=== PATIENT | male | born 1955 | race Caucasian/White ===

== ENCOUNTER 2019-03-09 12:00 | Emergency (ER) | payer OTHER, MEDICAID, SELFPAY ==
[2019-03-09 12:22] VITALS: BP 142/105; PULSE 76; RESP 18; TEMP 36.7; O2SAT 99
--- NOTE | 2019-03-09 12:34 | PC.NURSE ---
Initial contact with pt in bed 10, R thumb pain, redness, fluctuating yellow pus like discoloration in R lateral distal thumb and swelling. Injured R thumb from a buffer wheel about 1 wk to 10 days ago and pain persisting. Denies fever, chills, nausea/vomiting
--- NOTE | 2019-03-09 13:39 | DI.RAD.S_ITS ---
PROCEDURE: XR HAND RT MIN 3V INDICATIONS: R. distal thumb pain/swelling TECHNIQUE: 3 views of the hand(s) acquired. COMPARISON: None. FINDINGS: Bones: No acute fractures or dislocations. Moderate degenerative changes of the right hand involving the distal interphalangeal joints of the second through fifth fingers, proximal interphalangeal joints of the third and fifth fingers, metacarpophalangeal joints of the thumb, fourth and fifth fingers, and interphalangeal joint of the right thumb. Carpal bones are normally aligned. No suspicious bony lesions. Soft tissues: No suspicious soft tissue calcifications. IMPRESSION: Right hand without acute osseous abnormalities. Moderate osteoarthritic changes of the right hand and thumb as described above. Dictated by: Reji Rodríguez M.D. on 03/09/2019 at 14:11 Approved by: Reji Rodríguez M.D. on 03/09/2019 at 14:13
--- NOTE | 2019-03-09 13:44 | ED_ITS ---
HPI - Extremity Injury (Upper) <Noa Sunshine PA-C - Last Filed: 03/09/19 20:19> General Chief Complaint: Extremity Injury, Upper Stated Complaint: Rt Thumb blistered Time Seen by Provider: 03/09/19 13:00 Source: patient Mode of arrival: ambulatory Limitations: no limitations History of Present Illness HPI narrative: This 63-year-old gentleman comes in due to pain in his right thumb along with swelling. He states that this started about 5 days ago. He was using a dremmel to bust some Mag it and he thinks that burned or rubbed on his hand. It has been read and had some swelling since then, but yesterday it blistered so he became concerned. He states that he thinks the is actually better today. He has not had fever. He states it is not painful to move the thumb, only with pressure on the area. He denies any other injury. Last tetanus shot was a year or 2 ago. He states he came in because his was concerned Related Data Home Medications Medication Instructions Recorded Confirmed ibuprofen 200 mg PO PRN #0 07/06/17 Previous Rx's Medication Instructions Recorded cephalexin [Keflex] 750 mg PO QID #120 cap 07/06/17 oxycodone 5 mg PO Q4HP PRN #40 tab 07/06/17 amoxicillin-pot clavulanate 1 tab PO Q12H #14 tab 03/09/19 Allergies Allergy/AdvReac Type Severity Reaction Status Date / Time No Known Allergies Allergy Uncoded 02/28/18 12:46 Review of Systems <Noa Sunshine PA-C - Last Filed: 03/09/19 20:19> Review of Systems ROS Unobtainable: All systems reviewed & are unremarkable except as noted in HPI and below PFSH <Noa Sunshine PA-C - Last Filed: 03/09/19 20:19> Medical History (Updated 03/09/19 @ 14:44 by Noa Sunshine PA-C) PTSD (post-traumatic stress disorder) (Chronic) Surgical History (Updated 03/09/19 @ 13:42 by Noa Sunshine PA-C) History of hand surgery (Resolved) Social History Smoking Status: Never smoker Social History Smoking Status: Never smoker Exam <Noa Sunshine PA-C - Last Filed: 03/09/19 20:19> Narrative Exam Narrative: GENERAL APPEARANCE: Patient sitting comfortably, in no distress. LUNGS: Clear to auscultation bilaterally. HEART: Rate and rhythm regular without murmur, normal S1 and S2, no S3 or S4. MUSCULOSKELETAL: All of the fingers are nodular. Tender with pressure on the medial or lateral distal thumb as well as over the vesicle, no tenderness elsewhere over the thumb. He is able to flex and extend, strength is intact against resistance DERM: The right thumb from the IP distal is edematous, moderate erythema surrounding the thumbnail and on the lateral side. On the medial side of the thumb there is a thickened, fluctuant vesicle. There does appear to be a pore centrally. Initial Vital Signs Initial Vital Signs: Vital Signs Temperature 98.0 F 03/09/19 12:22 Pulse Rate 76 03/09/19 12:22 Respiratory Rate 18 03/09/19 12:22 Blood Pressure 142/105 H 03/09/19 12:22 Pulse Oximetry 99 03/09/19 12:22 <Deja Lackey, - Last Filed: 03/10/19 07:33> Initial Vital Signs Initial Vital Signs: Vital Signs Temperature 98.0 F 03/09/19 12:22 Pulse Rate 76 03/09/19 12:22 Respiratory Rate 18 03/09/19 12:22 Blood Pressure 142/105 H 03/09/19 12:22 Pulse Oximetry 99 03/09/19 12:22 Course <Noa Sunshine PA-C - Last Filed: 03/09/19 20:19> Additional Information: Advised I and D attempt due to fluctuance around the vesicle, not clear whether this is due to abscess versus skin injury. He appears to have cellulitis as well. He declined I and D today, did agree to antibiotic and will start that right away and follow up with his PCP in 2-3 days. He agreed to return if acutely worsening or new symptoms such as fever over the weekend Orders Ordered: ED Orders 03/09/19 13:39 XR hand RT min 3V Stat Vital Signs - 8 hr 03/09/19 12:22 03/09/19 14:01 Temperature 98.0 F Pulse Rate 76 80 Respiratory Rate 18 16 Blood Pressure 142/105 H Blood Pressure [Left Arm] 155/109 H Pulse Oximetry 99 98 <Deja Lackey DO - Last Filed: 03/10/19 07:33> Orders Ordered: ED Orders 03/09/19 13:39 XR hand RT min 3V Stat Vital Signs - 8 hr 03/09/19 12:22 03/09/19 14:01 Temperature 98.0 F Pulse Rate 76 80 Respiratory Rate 18 16 Blood Pressure 142/105 H Blood Pressure [Left Arm] 155/109 H Pulse Oximetry 99 98 MDM - Extremity Injury (Upper) <Noa Sunshine PA-C - Last Filed: 03/09/19 20:19> Imaging Data hand: Radiologist's impression: 18 Noa Sunshine PA-C Find Patient Imaging Bay Baig 63 M 1955 ACTIVITY DATE EXAM STATUS AUTHOR 03/09/19 13:[address] [address] XRay Report Signed Patient: Bay Baig CMR#: [id number] : 1955cct:[id number] Age/Sex: 63 / MDate of Service: 03/09/19 Loc: ED Accession Number: [id number] Procedure: XR hand RT min 3V Ordering Provider: Noa Sunshine P.A-C PROCEDURE: XR HAND RT MIN 3V INDICATIONS: R. distal thumb pain/swelling TECHNIQUE: 3 views of the hand(s) acquired. COMPARISON: None. FINDINGS: Bones: No acute fractures or dislocations. Moderate degenerative changes of the right hand involving the distal interphalangeal joints of the second through fifth fingers, proximal interphalangeal joints of the third and fifth fingers, metacarpophalangeal joints of the thumb, fourth and fifth fingers, and interphalangeal joint of the right thumb. Carpal bones are normally aligned. No suspicious bony lesions. Soft tissues: No suspicious soft tissue calcifications. IMPRESSION: Right hand without acute osseous abnormalities. Moderate osteoarthritic changes of the right hand and thumb as described above. Dictated by: Reji Rodríguez M.D. on 03/09/2019 at 14:11 Approved by: Reji Rodríguez M.D. on 03/09/2019 at 14:13 Discharge Plan Departure Patient Disposition: Home Clinical Impression: Cellulitis of thumb, right Discharge Date/Time: 03/09/19 14:43 Interventions: ED Discharge Assessment Last Done: 03/09/19 14:52 Instructions: DI for Cellulitis -- Adult, Cellulitis Activity Restrictions/Additional Instructions: I have recommended that we make an incision in your thumb today to evaluate further for abscess (a collection of pus/infected fluid) as I am concerned about that. Since you have elected not to do that today, I have prescribed an antibiotic for you, please pick this up right away and take 2 doses today. You can try soaking the thumb in warm to hot water several times daily. As we talked about, you should follow-up with your PCP on Monday for recheck and this may need to be drained if worsening or not getting better. As we talked about, you should return right away if you have acutely worsening pain, redness, or new fever. Prescriptions: New amoxicillin-pot clavulanate 875-125 mg tablet 1 tab PO Q12H Qty: 14 RF: 0 No Action ibuprofen 200 MG capsule 200 mg PO PRNQty: 0 RF: 0 oxycodone 5 MG tablet 5 mg PO Q4HP PRNQty: 40 RF: 0 cephalexin [Keflex] 750 MG capsule 750 mg PO QID Qty: 120 RF: 0 Referrals: [address] [Other] <Deja Lackey DO - Last Filed: 03/10/19 07:33> Cosign ED Attending Cosignature Attestation: I was immediately available in the department for consultation. This documentation has been reviewed and I agree with assessment and plan. Supervised by Deja Lackey DO
[2019-03-09 14:01] VITALS: BP 155/109; PULSE 80; RESP 16; O2SAT 98
== END 2019-03-09 14:43 | disposition home or self-care (01) ==
PROVIDERS: Emergency Provider Internal Medicine
DX: L03.011 Cellulitis of right finger (principal)
CPT/HCPCS: 29130; 73130; 99282; 99283

== ENCOUNTER 2025-03-27 14:24 | Emergency (ER) | payer MEDICARE, MEDICAID, SELFPAY ==
[2025-03-27] VITALS (14 sets, daily range): BP systolic 155–200; BP diastolic 96–118; PULSE 58–88; RESP 13–50; TEMP 35.9; O2SAT 94–100; BMI 22.6
--- NOTE | 2025-03-27 14:41 | EKG_ITS ---
[place] [id number] [place] [id number] Test Date: 2025-03-27 Pat Name: Bay Baig Department: Room: Gender: Male Surgical Pathologist: DREW : 1955 Requested By: Order Number: [id number] Reading MD: Regino Tena MD Measurements Intervals [place] Rate: 82 P: 55 SC: 174 QRS: -23 QRSD: 120 T: 12 QT: 432 QTc: 504 Interpretive Statements Normal sinus rhythm Nonspecific intraventricular conduction delay Minimal voltage criteria for LVH, may be normal variant ( Vivek product ) Nonspecific ST abnormality Electronically Signed On 03-28-2025 10:05:17 PDT by Regino Tena MD
--- NOTE | 2025-03-27 14:50 | DI.CT.S_ITS ---
PROCEDURE: CT CERVICAL SPINE WO CON INDICATIONS: Trauma TECHNIQUE: Noncontrast 3 mm thick sections acquired from the skull base to the T4 level. Sagittal and coronal reformats were then constructed. For radiation dose reduction, the following was used: automated exposure control, adjustment of mA and/or kV according to patient size. COMPARISON: None. FINDINGS: Image quality: Excellent. Bones: No acute fractures or dislocations. Visualized superior ribs are intact. Multilevel disc space narrowing and degenerative endplate changes. Multilevel uncovertebral joint and facet hypertrophy. Soft tissues: Prevertebral soft tissues are normal in thickness. No paravertebral hematomas. No apical pneumothoraces. IMPRESSION: No acute displaced fracture or traumatic subluxation. Approved by: Milo Palomo M.D. on 03/27/2025 at 15:55
--- NOTE | 2025-03-27 14:50 | DI.CT.S_ITS ---
PROCEDURE: CT CHEST ABD PEL W CON INDICATIONS: TRAUMA TECHNIQUE: After the administration of intravenous contrast, 5 mm thick sections acquired from the lung apices to the symphysis. 2.5 mm thick coronal and sagittal reformats were acquired. Additional 7 mm thick coronal maximum intensity projection (MIP) reformats acquired through the lungs. Optional 10-minute delayed imaging may be performed from the kidneys to the bladder. For radiation dose reduction, the following was used: automated exposure control, adjustment of mA and/or kV according to patient size. COMPARISON: None. FINDINGS: Image quality: Diagnostic. CHEST: Lower Neck: No enlarged lymph nodes. Thyroid: No thyroid nodules which require sonographic evaluation. Axillae: No enlarged lymph nodes. Chest Wall: No subcutaneous gas. Lungs and Pleura: No pulmonary contusions or lacerations. No acute airspace opacities. Mild focal scarring or atelectasis in the lingula. No pneumothorax or hemothorax. Mediastinum: No mediastinal hematomas. Heart size is normal. No pericardial effusion. Thoracic aorta and pulmonary arteries demonstrate normal size and enhancement. No mediastinal or hilar adenopathy. Esophagus is normal in caliber. No hiatal hernia. ABDOMEN: Liver: No lacerations. Small hypoattenuating lesions in the liver are most likely cysts or hemangiomas. Gallbladder: No radiopaque gallstones or wall thickening. Biliary ducts: No biliary dilation. Pancreas: Homogenous enhancement. Spleen: Homogenous enhancement without laceration or hematoma. Adrenal Glands: Symmetric enhancement. Kidneys and Ureters: Symmetric enhancement. No hydronephrosis. No solid mass. No complex renal cystic lesion which requires follow up. Stomach and Bowel: Scattered diverticula in the colon. Normal appendix. Small bowel loops and stomach are unremarkable. Peritoneum: No abnormal intraperitoneal fluid. No free air. Ventral Wall: No hernia. Abdominal Nodes: No retroperitoneal or mesenteric adenopathy by size criteria. Vessels: Distal abdominal aortic ectasia measuring up to 2.9 cm in diameter. PELVIS: Pelvic Organs: Prostate is mildly enlarged. Bladder: Normal thickness. Pelvic Nodes: No enlarged lymph nodes. Miscellaneous: No inguinal hernias are seen. Bones: Minimally displaced segmental fracture of the posterior left 10th rib (3/41 and 46). Possible nondisplaced left posterior 11th rib fracture. Pelvic ring and hip joints appear intact. IMPRESSION: 1. Minimally displaced segmental fracture of the posterior left 10th rib and suspected nondisplaced fracture of the posterior left 11th rib. No pleural effusion or pneumothorax. 2. No other acute traumatic findings in the chest, abdomen, or pelvis. 3. Distal abdominal aortic ectasia. Recommend 5 year follow-up ultrasound. Approved by: Milo Palomo M.D. on 03/27/2025 at 16:06
--- NOTE | 2025-03-27 14:50 | DI.CT.S_ITS ---
PROCEDURE: CT HEAD/BRAIN WO CON INDICATIONS: Trauma TECHNIQUE: Noncontrast 4.5 mm thick angled axial sections acquired from the foramen magnum to the vertex, with coronal and sagittal reformats. For radiation dose reduction, the following was used: automated exposure control, adjustment of mA and/or kV according to patient size. COMPARISON: None. FINDINGS: Image quality: Diagnostic. CSF spaces: Basal cisterns are patent. No extra-axial fluid collections. The ventricles are symmetric in size and shape. Brain: No acute intracranial hemorrhage or mass effect. There is cerebral volume loss, with resultant ventricular and sulcal prominence. There are periventricular and deep white matter chronic small vessel ischemic changes. There is intracranial internal carotid artery atherosclerosis. Skull and face: Calvarium and visualized facial bones appear intact, without suspicious lesions. Sinuses: Visualized sinuses and mastoids are clear. IMPRESSION: No acute intracranial pathology. Approved by: Milo Palomo M.D. on 03/27/2025 at 15:52
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
[2025-03-27 15:01] LABS: Add Manual Diff / Slide Review NO; Basophils Absolute Auto 100 /uL (0-100); Basophils Percent Auto 0.7 % (0-2); Eosinophils Absolute Auto 100 /uL (0-450); Eosinophils Percent Auto 1.3 % (2-4); Hematocrit 49.5 % (41-53); Hemoglobin 17.3 g/dL (13.5-17.5); Lactate (Lactic Acid) 2.8 mmol/L (0.7-2.1); Lymphocytes Absolute Auto 1700 /uL (1100-4500); Lymphocytes Percent Auto 23.4 % (25-40); Mean Corpuscular Hemoglobin 31.7 PG (26-34); Mean Corpuscular Volume 90.6 fL (80-100); Monocytes Absolute Auto 500 /uL (0-900); Monocytes Percent Auto 6.3 % (3-14); Neutrophils Absolute Auto 5100 /uL (1500-7000); Neutrophils Percent Auto 68.3 % (50-75); Platelet Count 304 X10^3/uL (150-400); Red Blood Cell Count 5.47 X10^6/uL (4.5-5.9); Red Cell Distribution Width 12.9 % (11.6-14.8); White Blood Cell Count 7.4 X10^3/uL (4.5-11.0)
[2025-03-27 15:02] LABS: Alanine Aminotransferase 22 IU/L (<50); Albumin 4.7 g/dL (3.5-5.0); Albumin Globulin Ratio 1.4 (1.0-2.8); Alkaline Phosphatase 143 U/L (38-126); Aspartate Aminotransferase 29 IU/L (17-59); BUN Creatinine Ratio 15.7 (6-22); Bilirubin Total 0.8 mg/dL (0.2-1.3); Blood Urea Nitrogen 22 mg/dL (9-20); Calcium 9.9 mg/dL (8.4-10.2); Carbon Dioxide 21 mmol/L (22-32); Chloride 103 mmol/L (98-107); Creatine Kinase 227 U/L (55-170); Estimated Glomerular Filt Rate 55 mL/min (>60); Ethanol (ETOH) < 10 mg/dL; Globulin 3.4 g/dL (1.7-4.1); Glucose 204 mg/dL (70-99); HEMOLYSIS < 15 (0-50); Potassium 3.7 mmol/L (3.4-5.1); Sodium 136 mmol/L (137-145); Total Protein 8.1 g/dL (6.3-8.2)
[2025-03-27 15:12] LABS: Troponin I < 0.012 ng/mL (0.01-0.034)
[2025-03-27] MEDS: SODIUM CHLORIDE 0.9% 1,000 ML 1000 ML IV (15:15)
[2025-03-27] MEDS: diazePAM 10 MG/2 ML SYRINGE 2.5 MG IV (15:16)
--- NOTE | 2025-03-27 15:25 | PC.NURSE ---
Pt hypertensive with bp 200/110. Dr Duckworth notified.
[2025-03-27 15:54] LABS: Ur Creatinine Normal (Normal); Ur Specific Gravity Normal (Normal); Urine pH Normal (Normal)
[2025-03-27 15:55] LABS: UR Morphine/Opiate cutoff 300 Negative (Negative); Urine Amphetamines Positive (Negative); Urine Barbiturates Negative (Negative); Urine Benzodiazepines Negative (Negative); Urine Cocaine Negative (Negative); Urine MDMA Negative (Negative); Urine Methadone Negative (Negative); Urine Methamphetamines Positive (Negative); Urine Oxycodone Negative (Negative); Urine Phencyclidine Negative (Negative); Urine Tetrahydrocannabinol Negative (Negative); Urine Tricyclic Antidepressant Negative (Negative)
[2025-03-27 16:00] LABS: Bacteria Urine None Seen; Culture Indicated Urine Cult Not Indicated; RBC Urine 1-5/HPF (0-5/HPF); Squamous Epithelial Cell Urine 0-1 /HPF (0-5/HPF); Urine Volume 10mL (spun); WBC Urine None Seen (0-5/HPF)
--- NOTE | 2025-03-27 16:12 | PC.NURSE ---
Patient BIB neighbor that was concerned that he was acting different than when she last saw him yesterday. Patient in triage is tachypneic, a/o x 3, patients left arm is flaccid and he is unable to lift either legs, patient reports no pain. Patient given 2.5mg valium and bolus of NS. Patient is resting with eyes closed, respirations are even and unlabored. Patient reports no significant health history, no daily medications, no significant alcohol intake. recently admitted here at [facility] and he has been unable to see her due to family disagreement
[2025-03-27 16:24] LABS: Reflexed Lactate in 2 Hours Y
[2025-03-27] MEDS: lisinopriL 10 MG TABLET PO (16:24)
--- NOTE | 2025-03-27 17:29 | CM.SWNOTE ---
ED PILOT PLANT TECHNICIAN Assessment Note: Pt is a 69yo male, resident of [place], is seen in the ED for possible dehydration and altered mental status. Pt lives on a boat with his significant other. Patient does not have an established PCP and insurance is Medicare and Medicaid. Reviewed chart and discussed with ED staff of pt's medical status. PILOT PLANT TECHNICIAN consulted due to pt grief/tearfulness during assessments, possible MH follow up. PILOT PLANT TECHNICIAN entered room to meet with patient, introduced self and role. Pt was found to be alert and oriented, responding appropriately during assessment, noted memory is impaired. Patient explains current stressor in which his partner of 15 years is currently admitted in the ICU and was told he could not receive any updates or be in the room with his partner due to contemptuous family dynamic and no official documentation that pt is POA. Of note, pt was not able to provide proof of marriage thus pt's daughter is next of kin/MDM. Pt reports his partner and himself, didn't get with the state on purpose because of their beliefs about the government. Pt explains they had a Commitment Ceremony approximately 15 year ago in [facility]. Pt was found to be tearful and expressed frustration, feelings of defeat about the family dynamic which is now prohibiting pt from receiving updates or be in the room with his partner while she is admitted. ED PILOT PLANT TECHNICIAN provided reflective listening to assist in validating emotions; provided psychoeducation regarding stress/anticipatory grief being expressed in unusual ways. Pt stated he is hopeful there can be a discussion in which he can be updated of his partner's status or be in the room with her, pt ankita with this PILOT PLANT TECHNICIAN that he hopes to be more in control of his emotions and actions if he is granted visitation. Pt denied SI/HI at this time, declined a referral to MH or PAUL treatment. Pt states he has no cravings for meth and has been attempting to lessen use in the last few weeks. Pt agreed to [facility] follow up call the next day, PILOT PLANT TECHNICIAN calls [facility] Crisis Line and provided pt information. Follow up call scheduled for Monday, 03/28 at noon. PILOT PLANT TECHNICIAN reviews this with ED provider Dr. Duckworth who indicates agreement and understanding. Pt medically cleared for discharge per ED Provider and would benefit from MH/PAUL follow up. Transport: Pt states he typically utilizes public transit but can possibly ask his friend, Mae, who brought him to the ED to assist in getting him back to his boat. Plan: Pt to discharge home with friend to transport when available. [facility] Crisis Line to follow up with pt tomorrow via phone call. TIFFANY Wetzel
[2025-03-27 17:46] LABS: Lactate 2HR (Lactic Acid Rflx) 1.7 mmol/L (0.7-2.1)
== END 2025-03-27 17:58 | disposition home or self-care (01) ==
PROVIDERS: Emergency Provider Emergency Medicine
DX: F41.9 Anxiety disorder, unspecified (principal); S22.42XA Multiple fractures of ribs, left side, initial encounter for closed fracture; F15.10 Other stimulant abuse, uncomplicated
CPT/HCPCS: 36415; 70450; 71260; 72125; 74177; 80053; 80305; 80320; 81003; 81015; 82550; 82962; 83605; 84145; 84484; 85025; 87040; 93005; 93010; 96361; 96374; 99284; J3360; Q9967

== ENCOUNTER 2025-09-24 19:22 | Observation (INO) | payer MEDICARE, MEDICAID, SELFPAY ==
[2025-09-24] VITALS (14 sets, daily range): BP systolic 181–221; BP diastolic 98–115; PULSE 61–93; RESP 15–22; TEMP 36.4; O2SAT 96–100; BMI 23.4
--- NOTE | 2025-09-24 19:28 | ED_ITS ---
HPI - General Adult
--- NOTE | 2025-09-24 19:28 | ED.GENADULT ---
HPI - General Adult General Chief complaint: Altered Mental Status Stated complaint: N/V SOB Time Seen by Provider: 09/24/25 19:27 History of Present Illness HPI narrative: 70-year-old male seemed confused to friends with whom he is staying on a boat in [place], history of drug use, has been prescribed oxycodone in the past for chronic pain. Denied alcohol use. Has had recent nausea, vomiting, diarrhea, abdominal discomfort, no fevers or chills. Arrived by EMS. No known trauma. Multiple episodes of nonbloody emesis earlier today. Denies headache. Per nurse's notes was tearful explaining his in March, lives alone. Does not seek medical care, has not seen a medical provider in 20 years. No chronic medications. Denies thoughts of hurting himself or others. When directly asked he does admit to methamphetamine use, but states his last use was 2 or 3 weeks ago. Related Data Home Medications ?Medication ?Instructions ?Recorded ?Confirmed ibuprofen 200 mg capsule 200 mg PO PRN ##0 07/06/17 Previous Rx's ?Medication ?Instructions ?Recorded cephalexin 750 mg capsule (Keflex) 750 mg PO QID #120 caps 07/06/17 oxycodone 5 mg tablet 5 mg PO Q4HP PRN #40 tabs 07/06/17 amoxicillin 875 mg-potassium 1 tab PO Q12H skin infection #14 03/09/19 clavulanate 125 mg tablet tabs Allergies Allergy/AdvReac Type Severity Reaction Status Date / Time No Known Allergies Allergy Uncoded 09/24/25 19:45 Patient History Medical History (Updated 09/24/25 @ 22:22 by Lamin Alfredo MD) PTSD (post-traumatic stress disorder) Surgical History (Updated 03/09/19 @ 13:42 by Noa Sunshine PA-C) History of hand surgery Social History Smoking Status: Current every day smoker alcohol intake frequency: 0-2 drinks per day Exam Narrative Exam Narrative: GENERAL: Well-developed patient, in mild distress. HEAD: Atraumatic. Normocephalic. EYES: Pupils equal round and reactive. Extraocular motions intact. No scleral icterus. No injection or drainage. ENT: Nose without bleeding, purulent drainage. Throat without erythema, tonsillar hypertrophy or exudate. Airway patent. NECK: Trachea midline. Non tender CARDIOVASCULAR: Regular rate and rhythm without murmurs, gallops, or rubs. RESPIRATORY: Clear to auscultation. Breath sounds equal bilaterally. No wheezes, rales, or rhonchi. GASTROINTESTINAL: Abdomen soft, non-tender, nondistended. EXTREMITIES: No edema or joint tenderness. BACK: Nontender without deformity or crepitance. No flank tenderness. NEURO: AOx3. Motor functions grossly nonfocal. SKIN: No rash or erythema of visible areas Initial Vital Signs Initial Vital Signs: Vital Signs Pulse Rate 93 H 09/24/25 19:29 Respiratory Rate 22 09/24/25 19:29 Pulse Oximetry 98 09/24/25 19:29 Course Orders Ordered: ED Orders 09/24/25 22:08 Consult to CLERK TELEGRAPH SERVICE - Legal Billing Specialist Stat 09/25/25 07:04 Lactate (Lactic Acid) Stat Sodium Chloride (Normal Saline 0.9%) 1,000 mls @ 1,000 mls/hr IV BOLUS ONE Stop: 09/25/25 08:02 Discontinued Medications Amlodipine Besylate (Amlodipine 5 Mg Tablet) 5 mg PO NOW ONE Stop: 09/24/25 22:22 Last Admin: 09/24/25 22:25 Dose: 5 mg Documented By: NARAYAN Vital Signs Vital signs: Vital Signs - 8 hr 09/24/25 23:30 09/24/25 23:30 09/25/25 00:00 Pulse Rate 61 74 Respiratory Rate 17 17 Blood Pressure 191/103 H Pulse Oximetry 96 95 Oxygen Delivery Method Room Air Room Air 09/25/25 00:00 09/25/25 00:30 09/25/25 00:30 Pulse Rate 82 Respiratory Rate 20 Blood Pressure 172/94 H 161/87 H Pulse Oximetry 98 Oxygen Delivery Method Room Air 09/25/25 01:00 09/25/25 01:00 09/25/25 01:30 Pulse Rate 76 65 Respiratory Rate 15 20 Blood Pressure 158/97 H Pulse Oximetry 97 96 Oxygen Delivery Method Room Air Room Air 09/25/25 01:37 09/25/25 01:37 09/25/25 02:00 Pulse Rate 79 61 Respiratory Rate 23 19 Blood Pressure 176/93 H Pulse Oximetry 97 96 Oxygen Delivery Method Room Air Room Air 09/25/25 02:00 09/25/25 05:24 Pulse Rate 109 H Respiratory Rate 20 Blood Pressure 181/99 H 172/109 H Pulse Oximetry 97 Oxygen Delivery Method Room Air Medical Decision Making Lab Data Lab results reviewed: Yes I reviewed the patient's lab results. Lab results narrative: White blood cell count 5000, hemoglobin 15.9, platelets adequate. Glucose 126. BUN 21 with creatinine 1.24, serum CO2 25, potassium 4.7 normal. Sodium 135 slight decreased. Liver functions normal. Lipase 350 mild elevation. Troponin negative/unmeasurable. Urine tox screen positive for amphetamine/methamphetamine, otherwise negative. 09/24/25 19:40 09/24/25 19:40 Labs: Lab Results 09/24/25 09/24/25 09/24/25 Range/Units 19:30 19:30 19:40 WBC 5.0 (4.5-11.0) X10^3/uL RBC 4.99 (4.5-5.9) X10^6/uL Hgb 15.9 (13.5-17.5) g/dL Hct 45.6 (41-53) % MCV 91.5 (80-100) fL MCH 31.9 (26-34) PG MCHC 34.9 (30-36) % RDW 13.2 (11.6-14.8) % Plt Count 254 (150-400) X10^3/uL Neut % (Auto) 77.9 H (50-75) % Lymph % (Auto) 14.2 L (25-40) % [place] % (Auto) 6.9 (3-14) % Eos % (Auto) 0.4 L (2-4) % Baso % (Auto) 0.6 (0-2) % Neut # (Auto) 3900 (7732-3548) /uL Lymph # (Auto) 700 L (8580-4976) /uL [place] # (Auto) 300 (0-900) /uL Eos # (Auto) 0 (0-450) /uL Baso # (Auto) 0 (0-100) /uL Sodium 135 L (137-145) mmol/L Potassium 4.7 (3.4-5.1) mmol/L Chloride 102 (98-107) mmol/L Carbon Dioxide 25 (22-32) mmol/L BUN 21 H (9-20) mg/dL Creatinine 1.24 (0.66-1.25) mg/dL Estimated GFR > 60 (>60) mL/min BUN/Creatinine Ratio 16.9 (6-22) Glucose 126 H (70-99) mg/dL Lactate 1.8 (0.7-2.1) mmol/L Calcium 8.9 (8.4-10.2) mg/dL Magnesium 1.9 (1.6-2.3) mg/dL Total Bilirubin 0.7 (0.2-1.3) mg/dL AST 37 (17-59) IU/L ALT 20 (<50) IU/L Alkaline Phosphatase 120 (38-126) U/L Troponin I < 0.012 (0.01-0.034) ng/mL NT-Pro-B Natriuret Pep 665 H (<125) pg/mL Total Protein 8.1 (6.3-8.2) g/dL Albumin 4.6 (3.5-5.0) g/dL Globulin 3.5 (1.7-4.1) g/dL Albumin/Globulin Ratio 1.3 (1.0-2.8) Lipase 305 H (23-300) U/L Urine Color Yellow Urine Appearance Clear Urine pH 7.0 Normal (4.5-8.0) Ur Specific [place] 1.015 (1.000-1.035) Urine Protein 1+ H (Negative) Urine Glucose (UA) Negative (Negative) g/dL Urine Ketones Trace H (NEGATIVE) Urine Occult Blood Negative (Negative) Urine Nitrate Negative (Negative) Urine Bilirubin Negative (NEGATIVE) Urine Urobilinogen 1.0 (0.2) E.U./dL Ur Leukocyte Esterase Negative (NEGATIVE) Urine RBC None seen (0-5/HPF) Urine WBC None seen (0-5/HPF) Ur Squamous Epith Cells None seen (0-5/HPF) Urine Bacteria None seen (None) Vol Urine Centrifuged 10ml (spun) U Opiates 300ng/mL cut Negative (Negative) Ur Oxycodone Screen Negative (Negative) Urine Methadone Screen Negative (Negative) Ur Barbiturates Screen Negative (Negative) U Tricyclic Antidepress Negative (Negative) Ur Phencyclidine Scrn Negative (Negative) Ur Amphetamines Screen Positive H (Negative) U Methamphetamines Scrn Positive H (Negative) Ur MDMA Scrn (Ecstasy) Negative (Negative) U Benzodiazepines Scrn Negative (Negative) Urine Cocaine Screen Negative (Negative) U Marijuana (THC) Screen Negative (Negative) Urine Specific [place] Normal (Normal) Ur Creatinine Normal (Normal) SARS-CoV-2 (PCR) (Negative) Influenza A (RT-PCR) (NEGATIVE) Influenza B (RT-PCR) (NEGATIVE) RSV (PCR) (Negative) 09/24/25 09/24/25 09/24/25 Range/Units 19:40 20:08 22:00 WBC (4.5-11.0) X10^3/uL RBC (4.5-5.9) X10^6/uL Hgb (13.5-17.5) g/dL Hct (41-53) % MCV (80-100) fL MCH (26-34) PG MCHC (30-36) % RDW (11.6-14.8) % Plt Count (150-400) X10^3/uL Neut % (Auto) (50-75) % Lymph % (Auto) (25-40) % [place] % (Auto) (3-14) % Eos % (Auto) (2-4) % Baso % (Auto) (0-2) % Neut # (Auto) (0566-2664) /uL Lymph # (Auto) (1951-5029) /uL [place] # (Auto) (0-900) /uL Eos # (Auto) (0-450) /uL Baso # (Auto) (0-100) /uL Sodium (137-145) mmol/L Potassium (3.4-5.1) mmol/L Chloride (98-107) mmol/L Carbon Dioxide (22-32) mmol/L BUN (9-20) mg/dL Creatinine (0.66-1.25) mg/dL Estimated GFR (>60) mL/min BUN/Creatinine Ratio (6-22) Glucose (70-99) mg/dL Lactate (0.7-2.1) mmol/L Calcium (8.4-10.2) mg/dL Magnesium (1.6-2.3) mg/dL Total Bilirubin (0.2-1.3) mg/dL AST (17-59) IU/L ALT (<50) IU/L Alkaline Phosphatase (38-126) U/L Troponin I < 0.012 (0.01-0.034) ng/mL NT-Pro-B Natriuret Pep (<125) pg/mL Total Protein (6.3-8.2) g/dL Albumin (3.5-5.0) g/dL Globulin (1.7-4.1) g/dL Albumin/Globulin Ratio (1.0-2.8) Lipase 350 H (23-300) U/L Urine Color Urine Appearance Urine pH (4.5-8.0) Ur Specific [place] (1.000-1.035) Urine Protein (Negative) Urine Glucose (UA) (Negative) g/dL Urine Ketones (NEGATIVE) Urine Occult Blood (Negative) Urine Nitrate (Negative) Urine Bilirubin (NEGATIVE) Urine Urobilinogen (0.2) E.U./dL Ur Leukocyte Esterase (NEGATIVE) Urine RBC (0-5/HPF) Urine WBC (0-5/HPF) Ur Squamous Epith Cells (0-5/HPF) Urine Bacteria (None) Vol Urine Centrifuged U Opiates 300ng/mL cut (Negative) Ur Oxycodone Screen (Negative) Urine Methadone Screen (Negative) Ur Barbiturates Screen (Negative) U Tricyclic Antidepress (Negative) Ur Phencyclidine Scrn (Negative) Ur Amphetamines Screen (Negative) U Methamphetamines Scrn (Negative) Ur MDMA Scrn (Ecstasy) (Negative) U Benzodiazepines Scrn (Negative) Urine Cocaine Screen (Negative) U Marijuana (THC) Screen (Negative) Urine Specific [place] (Normal) Ur Creatinine (Normal) SARS-CoV-2 (PCR) Negative (Negative) Influenza A (RT-PCR) Flu a negative (NEGATIVE) Influenza B (RT-PCR) Flu b negative (NEGATIVE) RSV (PCR) Negative (Negative) Imaging Data CT scan - head: Radiologist's Impression: [address] [address] [address] Scan Report Signed Patient: Bay Baig MR#: [id number] : 1955 Acct:[id number] Age/Sex: 70 / M Date of Service: 09/24/25 Loc: ED Accession Number: [id number] Procedure: CT head/brain wo con Ordering Provider: Lamin Alfredo MD PROCEDURE: CT HEAD/BRAIN WO CON INDICATIONS: vomiting, confusion TECHNIQUE: Noncontrast 4.5 mm thick angled axial sections acquired from the foramen magnum to the vertex, with coronal and sagittal reformats. For radiation dose reduction, the following was used: automated exposure control, adjustment of mA and/or kV according to patient size. COMPARISON: [facility], CT, CT HEAD/BRAIN WO CON, 03/27/2025, 15:12. FINDINGS: Image quality: Diagnostic CSF spaces: Basal cisterns are patent. Lateral ventricles are symmetric. Volume: Vascular calcifications. Periventricular white matter disease is commonly seen with chronic microangiopathy. Volume loss is present. These findings are moderate Brain: Relatively denser appearance of the intracranial arteries, similar to prior, possibly artifactual from vascular calcifications. No acute hemorrhage or gross loss of zuniga-white differentiation. Craniofacial structures: No significant paranasal sinus opacity. IMPRESSION: No acute intracranial pathology. If there is high concern for parenchymal pathology, consider further evaluation with MRI. Dictated by: Ricky Grimaldo M.D. on 09/24/2025 at 20:14 Approved by: Ricky Grimaldo M.D. on 09/24/2025 at 20:16 Chest x-ray: Radiologist's Impression: [place] [address] XRay Report Signed Patient: Bay Baig MR#: [id number] : 1955 Acct:[id number] Age/Sex: 70 / M Date of Service: 09/24/25 Loc: ED Accession Number: [id number] Procedure: XR chest 1V Ordering Provider: Lamin Alfredo MD PROCEDURE: XR CHEST 1V INDICATIONS: confused TECHNIQUE: One view of the chest was acquired. COMPARISON: None. FINDINGS: Surgical changes and devices: None. Lungs and pleura: Lungs are clear. No pleural effusions or pneumothorax. Mediastinum: Mediastinal contours appear normal. Heart size is mildly enlarged. Bones and chest wall: No suspicious bony lesions. Overlying soft tissues appear unremarkable. IMPRESSION: No acute cardiopulmonary pathology. Dictated by: Isai Scott M.D. on 09/24/2025 at 19:58 Approved by: Isai Scott M.D. on 09/24/2025 at 19:58 ECG Data Attestation: I personally reviewed and interpreted this ECG as follows: Interpretation: 2031, normal sinus rhythm with a rate of 76, no obvious ST segment elevation or depression changes. Wandering baseline anterior leads noted. IA 192, QRS 106, QTC 492. MDM Narrative Medical decision making narrative: 70-year-old male with confusion and shortness of breath, had been staying on a boat, feels like he is having chills, noted by others on the boat to seemed confused. Multiple episodes nonbloody emesis. No injury or trauma. Denies alcohol use. Oxycodone noted on his medication list, unclear if he might have taken extra dose. No known thoughts hurting self or others. Afebrile, sirs screen negative. EKG shows normal sinus rhythm, anterior baseline artifact noted. No gross obvious ischemic changes. Chest x-ray no acute changes. Lab data: White blood cell count 5000, hemoglobin 15.9, platelets adequate. Glucose 126. BUN 21 with creatinine 1.24, serum CO2 25, potassium 4.7 normal. Sodium 135 slight decreased. Liver functions normal. Lipase 350 mild elevation. COVID influenza flu negative. CT head no acute changes. See radiology report. Urine drug screen positive for amphetamine, did admit to amphetamine use. 0100, Lives alone, tearful, loss of his in March 2025. Offered social media community manager consult, he would like to talk to social worker, we will consult when available later today. Elevated blood pressure, no tachycardia, methamphetamine use, confusion we will avoid benzodiazepine for now. Oral dose amlodipine. Blood pressure improved. Await social media community manager consult 0700, social worker to be consulted, signed out to oncoming ED shift physician Dr. Barclay. Discharge Plan Departure Clinical Impression: Methamphetamine abuse, Confusion, Blood pressure elevated without history of HTN Prescriptions: No Action ibuprofen 200 MG capsule 200 mg PO PRNQty: 0 oxycodone 5 MG tablet 5 mg PO Q4HP PRNQty: 40 0RF cephalexin [Keflex] 750 MG capsule 750 mg PO QID Qty: 120 0RF amoxicillin-pot clavulanate 875-125 mg tablet 1 tab PO Q12H Qty: 14 0RF
--- NOTE | 2025-09-24 19:31 | DI.RAD.S_ITS ---
PROCEDURE: XR CHEST 1V
--- NOTE | 2025-09-24 19:33 | DI.CT.S_ITS ---
PROCEDURE: CT HEAD/BRAIN WO CON
[2025-09-24 20:07] LABS: Add Manual Diff / Slide Review NO; Hematocrit 45.6 % (41-53); Hemoglobin 15.9 g/dL (13.5-17.5); Lipase 350 U/L (23-300); Lymphocytes Absolute Auto 700 /uL (1100-4500); Mean Corpuscular HGB Conc 34.9 % (30-36); Mean Corpuscular Hemoglobin 31.9 PG (26-34); Mean Corpuscular Volume 91.5 fL (80-100); Platelet Count 254 X10^3/uL (150-400)
[2025-09-24 20:08] LABS: Alanine Aminotransferase 20 IU/L (<50); Albumin 4.6 g/dL (3.5-5.0); Albumin Globulin Ratio 1.3 (1.0-2.8); Alkaline Phosphatase 120 U/L (38-126); Blood Urea Nitrogen 21 mg/dL (9-20); Calcium 8.9 mg/dL (8.4-10.2); Carbon Dioxide 25 mmol/L (22-32); Chloride 102 mmol/L (98-107); Estimated Glomerular Filt Rate > 60 mL/min (>60); Globulin 3.5 g/dL (1.7-4.1); Glucose 126 mg/dL (70-99); Lactate (Lactic Acid) 1.8 mmol/L (0.7-2.1); Lipase 305 U/L (23-300); Magnesium 1.9 mg/dL (1.6-2.3); Sodium 135 mmol/L (137-145); Total Protein 8.1 g/dL (6.3-8.2)
[2025-09-24 20:10] LABS: HEMOLYSIS 142 (0-50); Potassium 4.7 mmol/L (3.4-5.1)
[2025-09-24 20:20] LABS: NT-proBNP (BNP-Adult 18+) 665 pg/mL (<125); Troponin I < 0.012 ng/mL (0.01-0.034)
--- NOTE | 2025-09-24 20:32 | EKG_ITS ---
[facility]
[2025-09-24 20:49] LABS: Influenza A - CEPHEID Flu A NEGATIVE (NEGATIVE); Influenza B - CEPHEID Flu B NEGATIVE (NEGATIVE)
[2025-09-24 20:52] LABS: COVID-19 CEPHEID 4-PLEX PCR Negative (Negative)
[2025-09-24 21:06] LABS: UR Morphine/Opiate cutoff 300 Negative (Negative); Ur Specific Gravity Normal (Normal); Urine MDMA Negative (Negative); Urine Methamphetamines Positive (Negative); Urine Tetrahydrocannabinol Negative (Negative); Urine Tricyclic Antidepressant Negative (Negative)
[2025-09-24 21:16] LABS: Appearance Urine UA CLEAR; Bilirubin Urine UA NEGATIVE (NEGATIVE); Color Urine UA YELLOW; Glucose Urine UA NEGATIVE (Negative); Ketones Urine UA TRACE (NEGATIVE); Leukocyte Esterase Urine UA NEGATIVE (NEGATIVE); Nitrite Urine UA NEGATIVE (Negative); Occult Blood Urine UA NEGATIVE (Negative); Protein Urine UA 1+ (Negative); Specific Gravity Urine UA 1.015 (1.000-1.035); Urobilinogen Urine UA 1.0 E.U./dL (0.2); pH Urine UA 7.0 (4.5-8.0)
[2025-09-24 22:43] LABS: Troponin I < 0.012 ng/mL (0.01-0.034)
[2025-09-25] VITALS (29 sets, daily range): BP systolic 150–189; BP diastolic 85–132; PULSE 61–109; RESP 15–23; TEMP 36.4–37; O2SAT 93–99; BMI 21.8
--- NOTE | 2025-09-25 | DI.MRI.S_ITS ---
PROCEDURE: MR HEAD/BRAIN WO CON
--- NOTE | 2025-09-25 02:20 | PC.NURSE ---
Pt resting quietly with eyes closed, resps even and not labored. No distress noted at this time. Pt rouses easily to verbal stimuli and engages appropriately with RN at this time. Per Dr. Helena subramanian for vs q4h. Continued plan of care discussed. No further requests or concerns at this time. Call light within reach.
--- NOTE | 2025-09-25 04:12 | PC.NURSE ---
Pt resting quietly with eyes closed, resps even and not labored. No distress noted at this time. Call light within reach. Warm blankets provided.
--- NOTE | 2025-09-25 05:19 | PC.NURSE ---
Ambulatory to restroom without difficulty or assistance
[2025-09-25] MEDS: SODIUM CHLORIDE 0.9% 1,000 ML 1000 ML IV (07:25)
[2025-09-25 07:58] LABS: Lactate (Lactic Acid) 0.8 mmol/L (0.7-2.1)
[2025-09-25] MEDS: NICOTINE 21 MG PATCH TOP (08:59)
[2025-09-25 09:10] LABS: Ammonia (NH3) < 9 umol/L (9-30)
--- NOTE | 2025-09-25 11:57 | CM.SWNOTE ---
ED ETHYL BLENDER Assessment Note: Pt is a 70yo male, resident of [place], is seen in the ED for Methamphetamine abuse, Confusion, Blood pressure elevated without history of HTN. Pt lives on a boat in [place], unclear of where he is docked. Pt does not have a PCP established and insurance is Medicare and Medicaid. Reviewed chart and discussed with multidisciplinary team pt's medical status and initial discharge needs. Per Provider, pt cleared for discharge pending establishing PCP and other community resources. ETHYL BLENDER entered room to meet with patient, introduced self and role. Present in the room are pt's friends, Calos and Kerline. Pt states he is typically independent at baseline, cares for his new dog to the best of abilities on boat. Pt states a preference to discharge home with friends to transport, friends agree to check on patient everyday for next few days. Patient expressed some interest in reconnecting with his father who lives in [place] and possibly moving up to [place] to be together in his father's home. PCP: Pt endorses an interest in now seeing a PCP in [place]. ETHYL BLENDER called [facility] and scheduled pt an appt with DIYA Muniz on soonest appt, 01/07/2026 at 2:00pm. Provided pt with printed scheduled appointment time for reference. ETHYL BLENDER encouraged pt to call PCP office and ask to be on cancellation waitlist in case he can be seen sooner. Also encouraged pt to possibly consider PCP in [place] or [facility] for sooner appt. Grief Counseling: Pt endorses feeling lost and forgetting about caring for himself since his life partner in March 2025. ETHYL BLENDER offered grief counseling via [facility], pt agreeable. ETHYL BLENDER encouraged pt to call direct line to grief counselors at [facility] to schedule appt. MH/PAUL Counseling: Pt declined this at this time. Food resources: ETHYL BLENDER discussed how pt obtains food everyday. Pt states he gets wrapped up in his daily tasks that he forgets to eat sometimes which could have caused this presentation. Pt friends agree to check on pt and assist with obtaining groceries if needed. ETHYL BLENDER reviewed Food resource list with pt and discussed utilizing the [facility] [employer] [place]. ETHYL BLENDER also highlighted reaching out to [facility] office to confirm pt food resources. Case Management: ETHYL BLENDER discussed someone checking in for case management in the community, pt agreeable to this. ETHYL BLENDER placed referral to [facility] via [employer] online form. ETHYL BLENDER reviews this with ED provider Dr. Barclay who indicates agreement and understanding. Plan: Pt to discharge home with friends to transport, [facility], PCP in December 2025, [facility] for case management. TIFFANY Wetzel
[2025-09-25] MEDS: NALOXONE 4 MG NASAL SPRAY MISC (12:07)
[2025-09-25] MEDS: ONDANSETRON 4 MG/2 ML INJ IV ×2 (12:19→17:17)
--- NOTE | 2025-09-25 13:27 | CM.DANOTE ---
DCP Assessment Note: Pt is a 70yo male, resident of [place], is admitted for Confusion, Blood pressure elevated without history of HTN. Pt lives on his boat in [facility]. Pt's Primary Care Provider is not established, has an appointment on 12/21/2025 with DIYA Muniz at [facility] and insurance is Medicare and Medicaid. Reviewed chart and discussed with multidisciplinary team pt's medical status and initial discharge needs. Per Provider, pt still experiencing altered mental status and will be admitted for observation and further medical work up. DCP met w/patient at bedside; introduced self and role. Patient was found in bed, alert and oriented, cooperative with assessment. Pt confirmed living situation and good support in friends. Pt expressed preference in discharge home when cleared, friends to transport. *see last BILLBOARD POSTER note for referrals in community placed: [facility] Grief Counseling, PCP establishment, and Food resources* Plan: Anticipating discharge home with friends to transport when medically cleared. CM team will follow closely for coordination of discharge plans. TIFFANY Wetzel Discharge Planning/Care Management CM Discharge Assessment Start: 09/25/25 13:05 Freq: Status: Active Protocol: Document 09/25/25 13:05 MW (Rec: 09/25/25 13:07 MW [id number]) Discharge Planning Assessment Assigned Discharge HUDSON Christianson Consulting Actuary Provider (not established) DIYA Muniz at [facility] Insurance Medicaid,Medicare DPOA/Assigned Calos Downey Designee Name Contact Information Advance Directives? No History Provided By Patient,Friend,Medical Record Prior Living Other Arrangements Comment Lives on a Boat in [place] Household Members none Type of Public Transportation transporation used prior to admit Independent with ADL Yes 's Is patient alert and Yes oriented? Discharge Plan Home Review Status In Process Please Provide Date 09/25/25 Initial DC Assessment Was Performed Next Review Type Continued Stay Review
[2025-09-25] MEDS: SODIUM CHLORIDE 0.45% 1,000 ML 100 ML IV (15:40)
--- NOTE | 2025-09-25 16:50 | P.HP_ITS ---
History of Present Illness
--- NOTE | 2025-09-25 16:50 | PM.HP.1 ---
History of Present Illness History of Present Illness Date Patient Seen: 09/25/25 Chief complaint: Confusion encephalopathy Narrative: Chief complaint: Confusion disoriented setting of chronic methamphetamine use recent prescription for oxycodone History of present illness: 09/25: 70-year-old male seemed confused to friends with whom he is staying on a boat in [facility], history of drug use, has been prescribed oxycodone in the past for chronic pain. Denied alcohol use. Has had recent nausea, vomiting, diarrhea, abdominal discomfort, no fevers or chills. Arrived by EMS. No known trauma. Multiple episodes of nonbloody emesis earlier today. Denies headache. Per nurse's notes was tearful explaining his in March, lives alone. Does not seek medical care, has not seen a medical provider in 20 years. No chronic medications. Denies thoughts of hurting himself or others. When directly asked he does admit to methamphetamine use, but states his last use was 2 or 3 weeks ago Workup in the emergency department significant for a negative MRI brain for stroke normal chest x-ray normal hemogram normal comprehensive metabolic profile negative troponin BNP of 665 lipase of 350 Urine tox screen positive for amphetamines and methamphetamines urinalysis negative ammonia negative Review of systems: No fevers chills rigors No chest pain cough shortness for breath No abdominal pain nausea vomiting diarrhea No paresthesia or paresis Physical exam: Confused elderly male very pleasant no acute distress HEENT unremarkable Heart rate and rhythm regular Lungs clear Abdomen nontender Extremities no edema Patient is confused and disoriented No focal neurologic findings Assessment and plan: Encephalopathy with confusion abnormal findings limited to lipase of 350 BNP 665 suspicions are pancreatitis which may be alcohol related versus illicit drug use CT abdomen and pelvis and ultrasound right upper quadrant to rule out biliary disease Clear liquid Antiemetics Intravenous fluids Daily CBC CRP lipase DVT prophylaxis: Subcutaneous heparin Code status: Full code blue Disposition: Observation but convert to inpatient if all symptoms do not resolve in 24 hours Time based billin minutes were involved in evaluation of this patient including direct patient evaluation discussion with emergency provider review of records review of objective laboratory and imaging findings discussion with treatment team [facility] Medical History (Updated 09/24/25 @ 22:22 by Lamin Alfredo MD) PTSD (post-traumatic stress disorder) Surgical History (Updated 03/09/19 @ 13:42 by Noa Sunshine PA-C) History of hand surgery Social History household members: none Smoking Status: Current every day smoker alcohol intake: current Meds Home Medications and Allergies Home Medications ?Medication ?Instructions ?Recorded ?Confirmed ?Type ibuprofen 200 mg capsule 200 mg PO Q8H PRN fever or pain ##0 07/06/17 09/25/25 History Allergies Allergy/AdvReac Type Severity Reaction Status Date / Time No Known Allergies Allergy Uncoded 09/24/25 19:45 Exam Vital Signs (past 8 hours): - 09/25/25 09:00 09/25/25 09:00 09/25/25 09:30 Pulse Rate 94 H Respiratory Rate Blood Pressure 166/132 H 151/85 H Pulse Oximetry 09/25/25 09:30 09/25/25 10:00 09/25/25 10:00 Pulse Rate 78 85 Respiratory Rate 17 18 Blood Pressure 168/104 H Pulse Oximetry 09/25/25 10:30 09/25/25 10:30 09/25/25 11:00 Pulse Rate 85 Respiratory Rate 20 Blood Pressure 168/105 H 167/102 H Pulse Oximetry 99 09/25/25 11:00 09/25/25 11:30 09/25/25 11:30 Pulse Rate 80 92 H Respiratory Rate 19 23 Blood Pressure 161/103 H Pulse Oximetry 97 96 09/25/25 12:00 09/25/25 12:00 09/25/25 12:30 Pulse Rate 82 72 Respiratory Rate 20 17 Blood Pressure 170/101 H Pulse Oximetry 94 09/25/25 12:48 09/25/25 12:48 09/25/25 12:53 Pulse Rate 79 78 Respiratory Rate 15 Blood Pressure 150/87 H Pulse Oximetry 94 96 09/25/25 12:53 09/25/25 13:00 09/25/25 13:00 Pulse Rate 80 Respiratory Rate 23 Blood Pressure 159/93 H 154/91 H Pulse Oximetry 97 09/25/25 13:30 09/25/25 13:30 Pulse Rate 82 Respiratory Rate 22 Blood Pressure 154/86 H Pulse Oximetry 97 Oxygen Delivery Method Room Air Oxygen Flow Rate 2 Objective Labs 09/24/25 19:40 09/24/25 19:40 Labs: Laboratory Results - last 24 hr 09/24/25 09/24/25 09/24/25 19:30 19:30 19:40 WBC 5.0 RBC 4.99 Hgb 15.9 Hct 45.6 MCV 91.5 MCH 31.9 MCHC 34.9 RDW 13.2 Plt Count 254 Neut % (Auto) 77.9 H Lymph % (Auto) 14.2 L [place] % (Auto) 6.9 Eos % (Auto) 0.4 L Baso % (Auto) 0.6 Neut # (Auto) 3900 Lymph # (Auto) 700 L [place] # (Auto) 300 Eos # (Auto) 0 Baso # (Auto) 0 Sodium 135 L Potassium 4.7 Chloride 102 Carbon Dioxide 25 BUN 21 H Creatinine 1.24 Estimated GFR > 60 BUN/Creatinine Ratio 16.9 Glucose 126 H Lactate 1.8 Calcium 8.9 Magnesium 1.9 Total Bilirubin 0.7 AST 37 ALT 20 Alkaline Phosphatase 120 Ammonia Troponin I < 0.012 NT-Pro-B Natriuret Pep 665 H Total Protein 8.1 Albumin 4.6 Globulin 3.5 Albumin/Globulin Ratio 1.3 Lipase 305 H Urine Color Yellow Urine Appearance Clear Urine pH 7.0 Normal Ur Specific [place] 1.015 Urine Protein 1+ H Urine Glucose (UA) Negative Urine Ketones Trace H Urine Occult Blood Negative Urine Nitrate Negative Urine Bilirubin Negative Urine Urobilinogen 1.0 Ur Leukocyte Esterase Negative Urine RBC None seen Urine WBC None seen Ur Squamous Epith Cells None seen Urine Bacteria None seen Vol Urine Centrifuged 10ml (spun) U Opiates 300ng/mL cut Negative Ur Oxycodone Screen Negative Urine Methadone Screen Negative Ur Barbiturates Screen Negative U Tricyclic Antidepress Negative Ur Phencyclidine Scrn Negative Ur Amphetamines Screen Positive H U Methamphetamines Scrn Positive H Ur MDMA Scrn (Ecstasy) Negative U Benzodiazepines Scrn Negative Urine Cocaine Screen Negative U Marijuana (THC) Screen Negative Urine Specific [place] Normal Ur Creatinine Normal SARS-CoV-2 (PCR) Influenza A (RT-PCR) Influenza B (RT-PCR) RSV (PCR) 09/24/25 09/24/25 09/24/25 19:40 20:08 22:00 WBC RBC Hgb Hct MCV MCH MCHC RDW Plt Count Neut % (Auto) Lymph % (Auto) [place] % (Auto) Eos % (Auto) Baso % (Auto) Neut # (Auto) Lymph # (Auto) [place] # (Auto) Eos # (Auto) Baso # (Auto) Sodium Potassium Chloride Carbon Dioxide BUN Creatinine Estimated GFR BUN/Creatinine Ratio Glucose Lactate Calcium Magnesium Total Bilirubin AST ALT Alkaline Phosphatase Ammonia Troponin I < 0.012 NT-Pro-B Natriuret Pep Total Protein Albumin Globulin Albumin/Globulin Ratio Lipase 350 H Urine Color Urine Appearance Urine pH Ur Specific [place] Urine Protein Urine Glucose (UA) Urine Ketones Urine Occult Blood Urine Nitrate Urine Bilirubin Urine Urobilinogen Ur Leukocyte Esterase Urine RBC Urine WBC Ur Squamous Epith Cells Urine Bacteria Vol Urine Centrifuged U Opiates 300ng/mL cut Ur Oxycodone Screen Urine Methadone Screen Ur Barbiturates Screen U Tricyclic Antidepress Ur Phencyclidine Scrn Ur Amphetamines Screen U Methamphetamines Scrn Ur MDMA Scrn (Ecstasy) U Benzodiazepines Scrn Urine Cocaine Screen U Marijuana (THC) Screen Urine Specific [place] Ur Creatinine SARS-CoV-2 (PCR) Negative Influenza A (RT-PCR) Flu a negative Influenza B (RT-PCR) Flu b negative RSV (PCR) Negative 09/25/25 09/25/25 07:27 08:54 WBC RBC Hgb Hct MCV MCH MCHC RDW Plt Count Neut % (Auto) Lymph % (Auto) [place] % (Auto) Eos % (Auto) Baso % (Auto) Neut # (Auto) Lymph # (Auto) [place] # (Auto) Eos # (Auto) Baso # (Auto) Sodium Potassium Chloride Carbon Dioxide BUN Creatinine Estimated GFR BUN/Creatinine Ratio Glucose Lactate 0.8 Calcium Magnesium Total Bilirubin AST ALT Alkaline Phosphatase Ammonia < 9 L Troponin I NT-Pro-B Natriuret Pep Total Protein Albumin Globulin Albumin/Globulin Ratio Lipase Urine Color Urine Appearance Urine pH Ur Specific [place] Urine Protein Urine Glucose (UA) Urine Ketones Urine Occult Blood Urine Nitrate Urine Bilirubin Urine Urobilinogen Ur Leukocyte Esterase Urine RBC Urine WBC Ur Squamous Epith Cells Urine Bacteria Vol Urine Centrifuged U Opiates 300ng/mL cut Ur Oxycodone Screen Urine Methadone Screen Ur Barbiturates Screen U Tricyclic Antidepress Ur Phencyclidine Scrn Ur Amphetamines Screen U Methamphetamines Scrn Ur MDMA Scrn (Ecstasy) U Benzodiazepines Scrn Urine Cocaine Screen U Marijuana (THC) Screen Urine Specific [place] Ur Creatinine SARS-CoV-2 (PCR) Influenza A (RT-PCR) Influenza B (RT-PCR) RSV (PCR) Assessment & Plan Time-Based Coding :: [TOTAL MINUTES] spent with patient and on the chart (including review of chart, obtaining history, exam, reviewing outside data, placing orders, documenting exam and treatment plan, and counseling patient) on [DATE]. Quality VTE Deep Vein Thrombosis/Pulmonary Embolism Present on Admission: No
--- NOTE | 2025-09-25 17:13 | DI.CT.S_ITS ---
PROCEDURE: CT ABDOMEN PELVIS WO CON
--- NOTE | 2025-09-25 18:45 | PC.NURSE ---
Patient is A&OX3 but forgetful and slightly unaware. He arrives this afternoon from ED at 1400 and is placed on telemetry. Albina RN completes admission assessment. He is taken to MRI and returned to floor. He initially c/o of severe headache but when offered toradol he states it's his thoughts that are causing him to have pain in his head. MD arrived at bedside to assess patient. He attempts to eat general diet dinner and did not tolerate it well. Instantly reported abd pain and nausea. Patient is changed to clear liquid. Plan is for him to be NPO after midnight for CT of abd, and U/S of abd in a.m. then return to clear liquid diet. Continuous monitoring.
[2025-09-25] MEDS: hydrALAZINE 20 MG/ML VIAL 10 MG IV (23:19)
[2025-09-26 03:50] VITALS: BP 124/76; PULSE 81; RESP 20; TEMP 36.6; O2SAT 95
[2025-09-26] MEDS: SODIUM CHLORIDE 0.45% 1,000 ML 100 ML IV (05:19)
[2025-09-26 07:45] VITALS: BP 154/88; PULSE 77; RESP 16; TEMP 37.1; O2SAT 98
--- NOTE | 2025-09-26 07:46 | PC.WOUNDPHOT ---
01:40- Per ICU nurse, patient had runs of VTach since 17:00, the longest was [address] Valentin notified , relayed labs and VS. No new orders.
--- NOTE | 2025-09-26 10:50 | PT.IIE ---
Surgical History (Last Updated 03/09/19 @ 13:42 by Noa Sunshine PA-C) History of hand surgery Medical History (Last Updated 03/09/19 @ 13:42 by Noa Sunshine PA-C) PTSD (post-traumatic stress disorder) Physical Therapy Inpatient Evaluation/Re-Eval M1 PT IP Prior Functional Status Start: 09/26/25 13:01 Freq: NEEDED Status: Active Protocol: Document 09/26/25 10:50 AB (Rec: 09/26/25 13:13 AB [id number]) Medical Review Prior Functional Status Medical History Yes Reviewed Communication able to make needs known Mobility and Gait pt stated that he was independent with all mobilities and ambulation without AD Social History Household Members none Living Arrangements House Number of Floors ( Two Floors Floors) Number of Stairs To pt lives alone on a boat but plans to go to his father' Enter/Railing? s house upon d/c: info provided is regarding pt's father's house: pt will stay on the main level of the house has a ramp to enter Home Environment Standard Height Toilet,Walk in Shower Home Equipment Shower Seat without Backrest,Hand Held Shower,Grab Bars In Shower Additional Social pt has an UP walker History Comment M2 PT-IP Current Condition Start: 09/26/25 13:01 Freq: NEEDED Status: Active Protocol: Document 09/26/25 10:50 AB (Rec: 09/26/25 13:13 [id number]) Physical Therapy Current Condition Current Condition Evaluation Date 09/26/25 Treatment Diagnosis encephalopathy; difficulty in walking Onset Date 09/25/25 M3 PT-IP Subjective Start: 09/26/25 13:01 Freq: NEEDED Status: Active Protocol: Document 09/26/25 10:50 AB (Rec: 09/26/25 13:13 AB [id number]) Subjective Physical Therapy Visit Type Type Initial Evaluation Visit Start Time 10:50 Visit Stop Time 11:15 Number of SORORITY SUPERVISOR Visits 0 Physical Therapy Visit Comments Patient Comments agreeable to do PT M4 PT-IP Mobility and Gait Start: 09/26/25 13:01 Freq: NEEDED Status: Active Protocol: Document 09/26/25 10:50 AB (Rec: 09/26/25 13:13 [id number]) PT-Bed Mobility Assessment Supine to Sit Supine to Sit Standby Assistance Sit to Supine Sit to Supine Standby Assistance PT-Transfer Assessment Sit to and From Stand Sit to and from Standby Assistance,Use of Upper Extremities Stand Equipment Transfer Assistive None,Gait Belt,4 Wheeled Walker Device Orthotic/Prosthetic No Devices or Brace: Transfers Transfer Destination Bed,Chair Transfer Technique ambulated Transfer Ability Level of Assist Standby Assistance,1 Person Assistance,Use of Upper Extremities Comments Mobility Comments pt supine in bench. pt's father in room with pt. pt got up and ambulated to the bed without AD SBA. presents with slow pace unsteady gait. obtained PLOF and home set up. pt's father stated that pt will be staying at his house upon d/c until ready to go back to his boat. pt requiring SBA for bed mobility and ambulated in room again for ~ 20 ft SBA without AD but tends to hold on to bed/wall for support. Assessed ambulation using 4WW and completed SBA. presents with steadier gait. pt agreed to use his Up walker at home. pt went back to bed. positioned in bed. call light and table placed next to pt. left pt with his father in room. pt agreed with HHPT. informed hospitalist regarding pt's mobility and d/c plans. Gait Assessment Gait Gait Assistance Standby Assistance Required: Distance (Feet) 20 Able to Maintain Yes Weight Bearing Status During Gait Assistive Devices Assistive Device None,Gait Belt,4 Wheeled Walker Orthotic/Prosthetic No Devices or Brace: Gait Deviations General Gait Pattern Ataxic,Decreased Stride Length,Decreased Feet Clearance Factors Limiting Gait Function Factors Limiting Decreased Activity Tolerance,Decreased Strength, Gait Function Incoordination,Poor Balance,Poor Safety Awareness PT-Balance Assessment Sitting Balance and Reactions Static Sitting Good Balance Ability Dynamic Sitting Good Balance Ability Standing Balance and Reactions Static Standing Good Balance Ability Dynamic Standing Fair Balance Ability Device Used 4WW M5 PT-IP Objective Assessments Start: 09/26/25 13:01 Freq: NEEDED Status: Active Protocol: Document 09/26/25 10:50 AB (Rec: 09/26/25 13:13 AB [id number]) Orientation Orientation/Cognition Level of Alertness Alert Orientation Name,Place,Situation Language Function No Deficits Noted Ability Safety Awareness Decreased Safety Awareness Memory Description Short Term Impaired Gross Range of Motion Lower Extremity ROM Assessment Within Functional Limits Strength Lower Extremity Strength Hip 4-/5 Knee 4-/5 Muscle Tone Muscle Tone WNL Yes M6 PT-IP Treatment Start: 09/26/25 13:01 Freq: NEEDED Status: Active Protocol: Document 09/26/25 10:50 AB (Rec: 09/26/25 13:13 AB [id number]) Physical Therapy Treatment Education Education Provided Safety M7 PT-IP Assessment and Plan Start: 09/26/25 13:01 Freq: NEEDED Status: Active Protocol: Document 09/26/25 10:50 AB (Rec: 09/26/25 13:13 AB [id number]) PT Summary Assessment and Plan Potential Rehabilitation Fair Potential Status of Condition Evolving at Evaluation Summary Impairments Pain,ROM,Strength,Balance,Coordination,Sensation,Tone, Cognition,Bed Mobility,Transfers,Gait,Activity Tolerance Assessment Summary pt is a 70y/o M who is admitted for encephalopathy. pt with h/o meth abuse. pt requiring SBA with mobility but presents with decrease activity tolerance affecting mobility independence and safety. pt lives alone on a boat but plans to go to his father's house upon d/c. pt will also benefit from HHPT. Goals Bed Mobility Goal Independent Transfer Goal Independent,Four Wheeled Walker Gait Goal Independent,Four Wheel Walker Gait Distance 200 Days to Meet Goals 10 Frequency of Treatment Frequency Of Once a Day Treatment Treatment Plan Physical Therapy Bed Mobility Training,Transfer Training,Gait Training, Treatment Plan Therapeutic Exercise,Balance Retraining,Post Op Education,Discharge Planning,Hot or Cold Pack, Neuromuscular Re-ed,Coordination Retraining,Manual Therapy Precautions Other Precautions falls Recommendations To Nursing Amount of Assist 1 Person Assist Needed Discharge Recommendations PT Discharge Home with Assistance,Home Health Recommendations Transportation Needs Private Vehicle,Wheelchair/Cabulance at Discharge - PT assist 1
--- NOTE | 2025-09-26 11:47 | CM.DPC ---
DCP Discharge Home Per MD, pt to work with PT today to confirm he can ambulate on/off his sailboat and then had discussion that pt also could d/c to his father's house in [place] as well. MD aware of pt's scheduled Establish PCP appointment with [facility] but currently not until December and SAUL called [facility] back to see if they can see him within 7-10 days of hospital discharge. [facility] triage team will attempt to get pt seen within a week and will call pt directly. Previous SW provided pt and his friends with multiple resource options yesterday. Plan: Patient to d/c home today via friend POV and outpt resources provided for grief counseling and primary care followup and pt declined PAUL resources at this time. HUDSON Marquez
[2025-09-26] MEDS: IBUPROFEN 600 MG TABLET PO (12:09)
--- NOTE | 2025-09-26 15:12 | P.DS_ITS ---
History of Present Illness
--- NOTE | 2025-09-26 15:12 | PM.DS.IH.1 ---
History of Present Illness History of Present Illness Date Patient Seen: 09/26/25 Time Patient Seen: 08:20 Chief complaint: Confusion encephalopathy Narrative: 70-year-old male seemed confused to friends with whom he is staying on a boat in [facility], history of drug use, has been prescribed oxycodone in the past for chronic pain. Denied alcohol use. Has had recent nausea, vomiting, diarrhea, abdominal discomfort, no fevers or chills. Arrived by EMS. No known trauma. Multiple episodes of nonbloody emesis earlier today. Denies headache. Per nurse's notes was tearful explaining his in March, lives alone. Does not seek medical care, has not seen a medical provider in 20 years. No chronic medications. Denies thoughts of hurting himself or others. When directly asked he does admit to methamphetamine use, but states his last use was 2 or 3 weeks ago Workup in the emergency department significant for a negative MRI brain for stroke normal chest x-ray normal hemogram normal comprehensive metabolic profile negative troponin BNP of 665 lipase of 350 Urine tox screen positive for amphetamines and methamphetamines urinalysis negative ammonia negative Discharge Providers Provider Date of admission: 09/25/25 12:53 Discharge Date: 09/26/25 Consults: 09/24/25 22:08 Consult to ELECTRICAL POWER STATION TECHNICIAN - Treating And Pumping Supervisor Stat Comment: Treating And Pumping Supervisor Consult needed for:: Other reason (Comment) Comment: Patient requesting help with potentially establishing primary care provider and maybe mental health counselor. No current SI or HI. [place]. Lives on a boat. Mental health resources sheet given to patient. 09/26/25 08:34 Consult to Physical Therapy Evaluate & Treat Comment: Lives on a sail boat, wants to return to same Physician Instructions: Evaluate and Treat Discharge provider: Davidson Steen MD Summary Hospital Course Discharge Diagnosis: Encephalopathy with confusion due to acute pancreatitis due to alcohol versus illicit drug use, versus possible concussion due to fall Hospital Course: The patient was admitted and observed overnight. He was able to get up and walk without limitation the following morning. Physical therapy assessed him and determined that he had no safety issues and would be able to return home with outpatient home health therapy follow-up. Arrangements were made with social worker masters for discharge to the patient's father's home for ongoing outpatient care and follow-up. No other issues arose. Status at Discharge Cognitive/behavioral status at discharge: oriented Functional status at discharge: independent ambulation Overall status at discharge: patient is progressing back to baseline Time Spent with Patient Time spent: Less than 30 minutes Exam Vital Signs (past 8 hours): - 09/26/25 07:45 09/26/25 07:45 Temperature 98.7 F Pulse Rate 77 Respiratory Rate 16 Blood Pressure 154/88 H Pulse Oximetry 98 Oxygen Delivery Method Room Air Oxygen Flow Rate 0 Oxygen Delivery Method Room Air Oxygen Flow Rate 0 Narrative Exam Narrative: GENERAL: This is a well-nourished, well-developed patient, appears fatigued but otherwise in no apparent distress. HEAD: Atraumatic. Normocephalic. No temporal or scalp tenderness. EYES: Pupils equal round and reactive. Extraocular motions intact. No scleral icterus. No injection or drainage. ENT: Mucous membranes pink and moist. NECK: Trachea midline. No JVD, bruits or lymphadenopathy. Supple, nontender, no meningeal signs. CARDIOVASCULAR: Regular rate and rhythm without murmurs, gallops, or rubs. RESPIRATORY: Clear to auscultation. GASTROINTESTINAL: Abdomen soft, non-tender, nondistended. EXTREMITIES: No clubbing, cyanosis, or edema. BACK: Nontender without deformity or crepitance. No flank tenderness. NEUROLOGIC: Alert, oriented, speech fluent, full upper and lower motor strength, no focal deficits evident. DERMATOLOGIC: No rashes or skin lesions. Objective Imaging *: Radiologist's impression: 1. Chest x-ray 09/24/2025: No acute cardiopulmonary pathology. 2. Head CT 09/24/2025: No acute intracranial pathology. If there is high concern for parenchymal pathology, consider further evaluation with MRI. 3. Brain MRI 09/25/2025: No acute intracranial process. Age-related volume loss and moderate small vessel ischemic change. 4. Abdomen/pelvis CT 09/25/2025: No significant pancreatic edema or fluid collection identified. Abdominal aortic aneurysm. Other findings above. Limited noncontrast CT. 5. Abdomen ultrasound 09/26/2025: Mildly heterogeneous pancreas. No peripancreatic fluid collection or pancreatic ductal dilation. Normal gallbladder. Normal caliber CBD. 1.4 cm and 1.5 cm echogenic circumscribed liver nodules. These most likely represent hemangiomas given the sonographic appearance. Confirmation can be obtained with OUTPATIENT contrast-enhanced MRI as needed. Labs 09/24/25 19:40 09/24/25 19:40 Labs: Laboratory Results - last 24 hr 09/26/25 01:26 POC Whole Bld Glucose 130 H PFSH Medical History PTSD (post-traumatic stress disorder) Surgical History History of hand surgery Social History household members: none Smoking Status: Current every day smoker alcohol intake: current Discharge Plan Discharge Plan Patient Disposition: Home Provider Discharge Comment: Followup with PCP 1 week Discharge orders & Medications Prescriptions: Discontinued ibuprofen 200 MG capsule 200 mg PO Q8H PRN (Reason: fever or pain) Qty: 0 Diet/Activity/Treatments Diet: Diet as Tolerated Visit Report/Discharge Packet Instructions: Opioid Use Disorder (Alternative Therapy), How to Prevent Falls, DI for Encephalopathy Stand Alone Forms: Patient Portal/API, Stroke Signs & Symptoms Discharge Data Attending Provider: Bairon Hensley Admit Date/Time: 09/25/25 12:53 Quality VTE Deep Vein Thrombosis/Pulmonary Embolism Present on Admission: No MIPS - Admit I confirm the patient?s Advance Care Plan is present, Code status is documented, Surrogate decision maker is in patient?s record [If Yes, STOP here]: Yes MIPS - Meds 'Current medications' to include all prescriptions, [id number] products, herbals, cannabis/cannabidiol products, and vitamin/mineral/dietary (nutritional) supplements. I have utilized all available resources to obtain, update, or review the patient?s current medications. [If Yes, STOP here]: Yes MIPS - DC The patient has a history of heart transplant or Left Ventricular Assist Device (LVAD). If yes, STOP here.: No The patient has current or prior documentation of left ventricular ejection fraction (LVEF) less than or equal to 40%, or moderate or severely depressed left ventricular systolic function.: No A. The patient was prescribed or already taking an Angiotensin-Converting Enzyme (TAMMY) Inhibitor, or Angiotensin Receptor Daniela (ARB).: No B. The patient was prescribed or already taking a beta-daniela. [If Yes to Both A & B, STOP here]: No Patient not prescribed/taking TAMMY or ARB, no reason given.: No Patient not prescribed/taking beta-daniela, no reason given.: No PROFEE Charge Codes Discharge inpatient/observation: 82086
--- NOTE | 2025-09-26 15:47 | PC.NURSE ---
Discharge: Pt feels ready to d/c to home. He was eval by PT prior to leaving and [facility] spoke with Dr. Steen. Dr Steen came and saw pt by self and gave d/c instructions and later when his father arrived. Pt is still having short term memory and he still has problems remembering things like discharge instructions. Discharge instructions reviewed with pt and his father. Discussed reorientation, if pt is unable to be reoriented or seems worse in any way father needs to bring patient back to the hospital. Discussed follow up call for rest of information. Called clinic [facility]. updated that patient decided to go home with father. Given fathers phone number. They will call father to let him know when pt's appt and time will, should call by end of day tomorrow. Father called Mr. Baig [phone] and notified clinic will call tomorrow with appt day and time. At the appt they will give grief resources. Father was given clinic number in case he had not received a call by the end of the day. [phone].
--- NOTE | 2025-09-26 17:17 | DI.US.S_ITS ---
PROCEDURE: US ABDOMEN LIMITED
== END 2025-09-26 13:10 | disposition home or self-care (01) ==
LOC: ED 09-25 12:53 → AC 09-25 12:54
PROVIDERS: Emergency Medicine; Admitting Provider Internal Medicine; Emergency Provider Family Medicine; Referring Provider Family Medicine; Visit Provider Internal Medicine
DX: K85.90 Acute pancreatitis without necrosis or infection, unspecified (principal); G93.49 Other encephalopathy; F15.11 Other stimulant abuse, in remission; F17.210 Nicotine dependence, cigarettes, uncomplicated; R41.0 Disorientation, unspecified
CPT/HCPCS: 36415; 70450; 70551; 71045; 74176; 76705; 80053; 80305; 81001; 82140; 82962; 83605; 83690; 83735; 83880; 84484; 85025; 87637; 93005; 96361; 96374; 96375; 96376; 97116; 97162; 99285; G0378; A9270; J0360; J2405; J7030; J7050

== ENCOUNTER 2025-10-02 15:07 | Emergency (ER) | payer MEDICARE, MEDICAID, SELFPAY ==
[2025-09-25 14:11] VITALS: BMI 21.8
[2025-10-02 15:21] VITALS: BP 176/100; PULSE 101; RESP 13; TEMP 36.9; O2SAT 96; BMI 21.9
--- NOTE | 2025-10-02 15:34 | DI.CT.S_ITS ---
PROCEDURE: CT HEAD/BRAIN WO CON INDICATIONS: altered mental status TECHNIQUE: Noncontrast 4.5 mm thick angled axial sections acquired from the foramen magnum to the vertex, with coronal and sagittal reformats. For radiation dose reduction, the following was used: automated exposure control, adjustment of mA and/or kV according to patient size. COMPARISON: [facility], MR, MR HEAD/BRAIN WO CON, 09/25/2025, 14:32. [facility], CR, XR CHEST 1V, 10/02/2025, 15:39. [facility], CT, CT HEAD/BRAIN WO CON, 09/24/2025, 19:35. FINDINGS: Image quality: Diagnostic. CSF spaces: Basal cisterns are patent. No extra-axial fluid collections. The ventricles are symmetric in size and shape. Brain: No intracranial bleeds or mass effect. There is cerebral volume loss, with resultant ventricular and sulcal prominence. There are periventricular and deep white matter chronic small vessel ischemic changes. There is intracranial internal carotid artery atherosclerosis. Skull and face: Calvarium and visualized facial bones appear intact, without suspicious lesions. Sinuses: Visualized sinuses and mastoids are clear. IMPRESSION: No acute intracranial hemorrhage is seen. No acute intracranial process is seen. To the limits of this noncontrast study, no findings of intracranial masses or mass effect can be seen. Dictated by: Carlos Mazariegos M.D. on 10/02/2025 at 15:38 Approved by: Carlos Mazariegos M.D. on 10/02/2025 at 15:39
--- NOTE | 2025-10-02 15:34 | DI.RAD.S_ITS ---
PROCEDURE: XR CHEST 1V INDICATIONS: Chest Pain TECHNIQUE: One view of the chest was acquired. COMPARISON: [facility], CR, XR CHEST 1V, 09/24/2025, 19:37. FINDINGS: Calcifications of the aortic arch. Degenerative changes of the thoracic spine. Cardiopericardial silhouette and pulmonary vasculature within normal limits. No pneumothorax no pleural effusion, no focal consolidation IMPRESSION: No radiographic evidence of acute thoracic abnormality. Dictated by: Stan Batres M.D. on 10/02/2025 at 17:01 Approved by: Stan Batres M.D. on 10/02/2025 at 17:05
--- NOTE | 2025-10-02 16:02 | ED.AMS ---
HPI - Altered Mental Status General Chief Complaint: Altered Mental Status Stated Complaint: HTN,Confusion Time Seen by Provider: 10/02/25 16:02 Source: patient and EMS Mode of arrival: EMS Limitations: no limitations History of Present Illness HPI narrative: 70-year-old male with history of methamphetamine use patient presents via EMS. He states he went to his doctor's office today took the bus has a about a mi and a half walk in the rain states he was hurrying as he does admit to getting confused occasionally and that has farther than he thought from his bus stop. He states when he arrived the office staff told him his blood pressure was very high called EMS and sent him here. He states he does occasionally get confused he denies any other symptoms he denies headaches, no chest pain or shortness of breath, no nausea or vomiting, no GI or urinary symptoms. No numbness tingling or weakness no difficulty with movement. States he does not have any known medical problems but does not follow up with a physician regularly. He states no daily medications. He does use methamphetamine states his last use was within the last couple days. He does not use tobacco regular, does drink alcohol. He notes that his in the last year. He defers meeting with the nursing home social worker or other resources. He notes that his father is still living in his a source of support. Patient is requesting to discharge home is his puppy needs to be fed and he was not expecting to be gone this long. Related Data Allergies Allergy/AdvReac Type Severity Reaction Status Date / Time No Known Drug Allergies Allergy Verified 10/02/25 15:21 Review of Systems Review of Systems ROS Unobtainable: All systems reviewed & are unremarkable except as noted in HPI and below Patient History Medical History PTSD (post-traumatic stress disorder) Surgical History History of hand surgery Social History household members: none alcohol intake: current tobacco type: cigarettes alcohol intake frequency: 0-2 drinks per day Exam Narrative Exam Narrative: GEN: well nourished, well appearing may, alert and oriented x 3, patient appears to be in mild distress. HEENT: Atraumatic, pupils are equal round reactive to light, extraocular movements are intact, nares are clear, TMs are clear with no fluid, there is no conjunctival pallor. Throat is clear without any exudates, erythema, tonsillar enlargement or uvular deviation, no facial droop. HEART: Regular rate and rhythm without murmur, clicks, rubs. Pulses are equal in upper and lower extremities LUNGS:Lungs clear to auscultation, no wheezes, rales, crackles, chest moves symmetrically ABD:bowel sounds normal, soft, non-tender, no guarding, rebound, rigidity, no masses noted, no hepatosplenomegaly :No CVA tenderness MSCL: Non-tender, no muscle atrophy, muscles strength 5/5 upper and lower extremities, full range of motion, normal gait NEURO:CN 2-12 intact, sensation normal, no tremor, no dysarthria, no aphasia. Initial Vital Signs Initial Vital Signs: Vital Signs Temperature 98.5 F 10/02/25 15:21 Pulse Rate 101 H 10/02/25 15:21 Respiratory Rate 13 10/02/25 15:21 Blood Pressure 176/100 H 10/02/25 15:21 Pulse Oximetry 96 10/02/25 15:21 Oxygen Delivery Method Room Air 10/02/25 15:21 Course Orders Ordered: ED Orders 10/02/25 15:34 CT head/brain wo con Stat XR chest 1V Stat EKG-12 Lead Stat 10/02/25 15:45 Complete Blood Count AUTO DIFF Stat Comprehensive Metabolic Panel Stat Lipase Stat Magnesium Stat NT-proBNP (BNP-Adult 18+) Stat PTT Partial Thromboplastin Osvaldo Stat Prothrombin Time INR Stat Troponin & CK Cardiac Panel Stat Discontinued Medications Aspirin (Aspirin 81 Mg Chew Tab) 324 mg PO NOW ONE Stop: 10/02/25 15:35 Last Admin: 10/02/25 16:32 Dose: Not Given Documented By: RB Vital Signs Vital signs: Vital Signs - 8 hr 10/02/25 15:21 Temperature 98.5 F Pulse Rate 101 H Respiratory Rate 13 Blood Pressure 176/100 H Pulse Oximetry 96 Oxygen Delivery Method Room Air MDM - Altered Mental Status Lab Data 10/02/25 15:45 10/02/25 15:45 Labs: Lab Results 10/02/25 Range/Units 15:45 WBC 5.8 (4.5-11.0) X10^3/uL RBC 4.69 (4.5-5.9) X10^6/uL Hgb 14.7 (13.5-17.5) g/dL Hct 43.2 (41-53) % MCV 92.1 (80-100) fL MCH 31.3 (26-34) PG MCHC 33.9 (30-36) % RDW 13.1 (11.6-14.8) % Plt Count 252 (150-400) X10^3/uL Neut % (Auto) 69.7 (50-75) % Lymph % (Auto) 18.3 L (25-40) % Beckham % (Auto) 8.4 (3-14) % Eos % (Auto) 2.8 (2-4) % Baso % (Auto) 0.8 (0-2) % Neut # (Auto) 4000 (3159-6666) /uL Lymph # (Auto) 1100 (9285-7832) /uL Beckham # (Auto) 500 (0-900) /uL Eos # (Auto) 200 (0-450) /uL Baso # (Auto) 0 (0-100) /uL PT 11.2 (9.4-12.5) SECONDS INR 1.0 (0.9-1.3) APTT 27 (25.1-36.5) SECONDS Sodium 141 (137-145) mmol/L Potassium 4.3 (3.4-5.1) mmol/L Chloride 105 (98-107) mmol/L Carbon Dioxide 28 (22-32) mmol/L BUN 26 H (9-20) mg/dL Creatinine 1.47 H (0.66-1.25) mg/dL Estimated GFR 52 L (>60) mL/min BUN/Creatinine Ratio 17.7 (6-22) Glucose 102 H (70-99) mg/dL Calcium 9.0 (8.4-10.2) mg/dL Magnesium 2.2 (1.6-2.3) mg/dL Total Bilirubin 0.2 (0.2-1.3) mg/dL AST 26 (17-59) IU/L ALT 16 (<50) IU/L Alkaline Phosphatase 114 (38-126) U/L Total Creatine Kinase 211 H (55-170) U/L Troponin I < 0.012 (0.01-0.034) ng/mL NT-Pro-B Natriuret Pep 786 H (<125) pg/mL Total Protein 7.3 (6.3-8.2) g/dL Albumin 4.3 (3.5-5.0) g/dL Globulin 3.0 (1.7-4.1) g/dL Albumin/Globulin Ratio 1.4 (1.0-2.8) Lipase 181 (23-300) U/L [facility] Narrative Medical decision making narrative: 70-year-old male presents for complaint of hypertension and confusion patient is alert, he is appropriate he does state he does occasionally get confused but answers questions appropriately here in the department he does note that he uses methamphetamine intermittently which may be exacerbating some of his issues. Patient has a head CT and chest x-ray and labs obtained he does not wish to wait for these results. He is calm and appropriate here in the department at this time he elects to leave Against Medical Advice. Workup after patient left was reviewed. Labs show normal CBC with normal white count, hemoglobin and platelets, coags are negative, creatinine is 1.47, BUN is 26 electrolytes are appropriate glucose is 102 LFTs are normal total CK is 211, troponins less than 0.012 BNP 786. Lipase is 181. Head CT shows no acute intracranial hemorrhage, no acute intracranial process. Chest x-ray shows no acute radiographic changes. Discharge Plan Departure Patient Disposition: Left Against Medical Advice Clinical Impression: Hypertension Activity Restrictions/Additional Instructions: I do recommend you follow up with the physician to be evaluated for any medical problems such as hypertension. It is also recommended that you avoid using methamphetamines if you find that you are interested in detox or resources you can reach out to our nursing home social worker at [phone] (ED number). You have labs, head CT and chest x-ray that are currently pending. I would recommend that you call back for these results. The number here is [phone]. You can return at any time for repeat evaluation if you are having new or worsening symptoms or other new or concerning changes. Stand Alone Forms: Patient Portal/API, Against Med. Advice (German)
[2025-10-02 16:08] LABS: INR 1.0 (0.9-1.3); Prothrombin Time 11.2 SECONDS (9.4-12.5)
[2025-10-02 16:11] LABS: PTT Partial Thromboplastin Tim 27 SECONDS (25.1-36.5)
[2025-10-02 16:13] LABS: Add Manual Diff / Slide Review NO; Hematocrit 43.2 % (41-53); Hemoglobin 14.7 g/dL (13.5-17.5); Lymphocytes Absolute Auto 1100 /uL (1100-4500); Mean Corpuscular HGB Conc 33.9 % (30-36); Mean Corpuscular Hemoglobin 31.3 PG (26-34); Mean Corpuscular Volume 92.1 fL (80-100); Platelet Count 252 X10^3/uL (150-400)
[2025-10-02 16:14] LABS: Alanine Aminotransferase 16 IU/L (<50); Albumin 4.3 g/dL (3.5-5.0); Albumin Globulin Ratio 1.4 (1.0-2.8); Alkaline Phosphatase 114 U/L (38-126); Blood Urea Nitrogen 26 mg/dL (9-20); Calcium 9.0 mg/dL (8.4-10.2); Carbon Dioxide 28 mmol/L (22-32); Chloride 105 mmol/L (98-107); Creatine Kinase 211 U/L (55-170); Estimated Glomerular Filt Rate 52 mL/min (>60); Globulin 3.0 g/dL (1.7-4.1); Glucose 102 mg/dL (70-99); HEMOLYSIS 34 (0-50); Lipase 181 U/L (23-300); Magnesium 2.2 mg/dL (1.6-2.3); Potassium 4.3 mmol/L (3.4-5.1); Sodium 141 mmol/L (137-145); Total Protein 7.3 g/dL (6.3-8.2)
[2025-10-02 16:31] LABS: NT-proBNP (BNP-Adult 18+) 786 pg/mL (<125); Troponin I < 0.012 ng/mL (0.01-0.034)
== END 2025-10-02 16:20 | disposition left against medical advice (07) ==
PROVIDERS: Emergency Provider Emergency Medicine
DX: I10 Essential (primary) hypertension (principal); R41.0 Disorientation, unspecified
CPT/HCPCS: 36415; 70450; 71045; 80053; 82550; 83690; 83735; 83880; 84484; 85025; 85610; 85730; 99283; 99284